=== PATIENT | male | born 1985 | race Two or more races ===

== ENCOUNTER 2016-07-01 20:33 | Emergency (ER) | payer SELFPAY ==
[2016-07-01 20:47] VITALS: BP 153/94
--- NOTE | 2016-07-01 21:04 | EDM.PDOC ---
ED HISTORY OF PRESENT ILLNESS - General Chief Complaint: Respiratory Problem Stated Complaint: COUGH/CONGESTION/SORE THROAT Time Seen by Provider: 07/01/16 21:04 Source of Information: Reports: Patient History Limitations: Reports: No limitations - History of Present Illness INITIAL COMMENTS - FREE TEXT/NARRATIVE: Patient presents for evaluation and treatment of cough and cold symptoms. Patient reports that his symptoms were present last week and a half. He is currently complaining of a productive cough, chills, shortness of breath, sore throat, bilateral ear discomfort, headaches and chest tightness. He states that he is coughing up a thick [place] green or white sputum. He reports that on occasion he has been coughing so hard that he vomits. He denies any fevers or nausea. He is unsure if he's been having any chills. Patient denies any ill contacts. Patient did not get his influenza vaccine. He is unsure about the remainder of his vaccines. Patient states he did travel to [place] last week Timing/Duration: Reports: Week(s): (1.5), Getting worse - Related Data Allergies/ADRs: Allergies Allergy/AdvReac Type Severity Reaction Status Date / Time No Known Allergies Allergy Verified 07/01/16 20:44 Home Meds: Home Meds Dextromethorphan/guaiFENesin [Robitussin DM] 5 ml PO ASDIRECTED PRN 07/01/16 [ History] Past Medical History Gastrointestinal History: Reports: GERD - Past Surgical History HEENT Surgical History: Reports: Tonsillectomy Musculoskeletal Surgical History: Reports: Arthroscopic knee Social & Family History - Tobacco Use Smoking Status *Q: Current Every Day Smoker Years of Tobacco use: 10 Packs/Tins Daily: 0.5 - Recreational Drug Use Recreational Drug Use: No ED ROS GENERAL - Review of Systems Review Of Systems: See Below Constitutional: Reports: malaise. Denies: fever HEENT: Reports: Ear pain, Throat pain Respiratory: Reports: Shortness of Breath, Cough, Sputum Cardiovascular: Reports: Chest pain (reports chest tightness) GI/Abdominal: Reports: Vomiting (post tussive emesis). Denies: Nausea Neurological: Reports: Headache ED EXAM, GENERAL - Physical Exam Exam: See Below Exam Limited By: No limitations General Appearance: alert, WD/WN, mild distress (tired and ill appearing) Ears: normal external exam, normal canal, hearing grossly normal, normal TMs ( scarring to the bilteral TMs from tube placement as a child) Nose: normal inspection Throat/Mouth: Normal inspection, Normal oropharynx, Normal voice, No airway compromise Neck: normal inspection, lymphadenopathy (L), lymphadenopathy (R) Respiratory/Chest: no respiratory distress, lungs clear, normal breath sounds Cardiovascular: normal peripheral pulses, no murmur, tachycardia Neurological: alert, oriented, normal cognition Psychiatric: normal affect, normal mood Skin Exam: Warm, Dry, Diaphoretic, Increased warmth Course - Vital Signs Last Recorded V/S: Last Vital Signs Temp 36.6 C 07/01/16 20:45 Pulse 92 07/01/16 20:45 Resp 18 07/01/16 20:45 BP 153/94 H 07/01/16 20:45 Pulse Ox 98 07/01/16 20:45 - Orders/Labs/Meds Orders: Active Orders 24 hr Category Date Time Status CULTURE STREP A CONFIRMATION [] Stat Lab 07/01/16 20:50 Results STREP SCRN A RAPID W CULT CONF [] Stat Lab 07/01/16 20:50 Results - Re-Assessments/Exams Free Text/Narrative Re-Assessment/Exam: 07/01/16 21:30 Flu and strep are negative Will treat for bronchitis with azithromycin and cough syrup. Discharge instructions as documented. Departure - Departure Time of Disposition: 21:34 Disposition: Home, Self-Care 01 Condition: fair Clinical Impression: Bronchitis Forms: ED Department Discharge Additional Instructions: prescription for azithromycin 250 mg tabs #6 Prescription for promethazine with codeine 6.25-10 per 5 mL #120 given through [facility]. Take the Zithromax as prescribed. 2 tabs on day one followed by one tab on days 2 through 5 for 5 days medication total. Take the cough syrup with codeine as prescribed. 5mls or 1 teaspoon every 4-6 hours as needed for cough. Codeine can be habit forming, I recommend you use as little as needed to control your symptoms. Do not drive or operate machinery within 12 hours of using the codeine. Rest and drink plenty of fluids. [id number] Tylenol or Motrin as needed for headaches in additional symptom relief. Followup with family medicine if you're not better within 2 weeks. Exam please return to the ER should her symptoms change or worsen. - My Orders Last 24 Hours: My Active Orders 07/01/16 20:50 CULTURE STREP A CONFIRMATION [RM] Stat STREP SCRN A RAPID W CULT CONF [] Stat - Assessment/Plan Last 24 Hours: My Active Orders 07/01/16 20:50 CULTURE STREP A CONFIRMATION [] Stat STREP SCRN A RAPID W CULT CONF [] Stat
== END 2016-07-01 21:55 | disposition home or self-care (01) ==
LOC: JD.ED 20:33
DX: J40 Bronchitis, not specified as acute or chronic (principal); K21.9 Gastro-esophageal reflux disease without esophagitis; F17.200 Nicotine dependence, unspecified, uncomplicated
CPT/HCPCS: 87081; 87430; 87804; 99283

== ENCOUNTER 2016-07-12 19:04 | Emergency (ER) | payer SELFPAY ==
[2016-07-12 19:17] VITALS: BP 129/82
--- NOTE | 2016-07-12 19:29 | EDM.PDOC ---
ED HPI Trauma - General Chief Complaint: Lower Extremity Injury/Pain Stated Complaint: LEFT KNEE INJURY Time Seen by Provider: 07/12/16 19:23 - History of Present Illness INITIAL COMMENTS - FREE TEXT/NARRATIVE: 30-year-old male presents emergency room with left knee pain. This is been going on about a week of potential triggering event that he banged his knee into the corner of the door since that time his knees bent more uncomfortable especially on the medial aspect of his knee. The patient has a sensation that his knees any give out this occurs 2-3 times a day. 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 Patient has prior history of left knee surgery back in [place] and he thinks they did some sort of meniscal repair. He has tried ibuprofen 800 mg after work one time daily. Allergies/ADRs: Allergies No Known Allergies Allergy (Verified 07/12/16 19:12) Home Medications: Ambulatory Orders Dextromethorphan/guaiFENesin [Robitussin DM] 5 ml PO ASDIRECTED PRN 07/01/16 [ Confirmed 07/01/16] Past Medical History Gastrointestinal History: Reports: GERD - Past Surgical History HEENT Surgical History: Reports: Tonsillectomy Musculoskeletal Surgical History: Reports: Arthroscopic knee Social & Family History - Tobacco Use Smoking Status *Q: Current Every Day Smoker Years of Tobacco use: 10 Packs/Tins Daily: 0.5 - Caffeine Use Caffeine Use: Reports: Coffee, Energy drinks, Soda, Tea - Recreational Drug Use Recreational Drug Use: No Review of Systems - Review of Systems Review Of Systems: See Below Constitutional: Reports: no symptoms Respiratory: Reports: No Symptoms Cardiovascular: Reports: no symptoms GI/Abdominal: Reports: No symptoms Trauma Exam - Physical Exam Exam: See Below Exam Limited By: No limitations General Appearance: Reports: alert, no apparent distress Respiratory Exam: Reports: no respiratory distress, lungs clear, normal breath sounds Cardiovascular: Reports: regular rate, rhythm, no edema, no murmur Extremities: Reports: other (Examination his left knee shows a minimal effusion mild discomfort under the patella palpation of the joint lines reveals moderate discomfort on the medial joint line. Anterior cruciate ligament appears intact MCL has small degree of laxity noted LCL appears to be intact meniscal entrapment testing is very uncomfortable loading of the medial compartment.) Course - Vital Signs Last Recorded V/S: Last Vital Signs Temp 37.1 C 07/12/16 19:12 Pulse 95 07/12/16 19:12 Resp 16 07/12/16 19:12 BP 129/82 07/12/16 19:12 Pulse Ox 100 07/12/16 19:12 - Orders/Labs/Meds Orders: Active Orders 24 hr Category Date Time Status Knee 3V Lt [CR] Stat Exams 07/12/16 19:29 Ordered Durable Medical Equipment for Discharge [DME for Oth 07/12/16 19:56 Ordered Discharge] [COMM] Stat - Re-Assessments/Exams Free Text/Narrative Re-Assessment/Exam: 07/12/16 19:36 The patient could potentially loose body in his left knee we will obtain an x- ray and probably will she was much. Anticipate placing the patient in a knee immobilizer and have him followup with orthopedics. 07/12/16 19:57 X-ray examination of the knees is unrevealing patient will be placed in a knee immobilizer anticipate discharge and followup with orthopedics this week Departure - Departure Time of Disposition: 19:57 Disposition: Home, Self-Care 01 Clinical Impression: Acute meniscal injury of left knee Referrals: PCP,None [Primary Care Provider] - Ronn Love MD [Physician] - Forms: ED Department Discharge Additional Instructions: Return to the emergency room with any questions or problems. Use your ibuprofen 800 mg 3 times a day take with meals. Use the knee immobilizer all times. Followup with Dr. Love this next week. - My Orders Last 24 Hours: My Active Orders 07/12/16 19:29 Knee 3V Lt [CR] Stat 07/12/16 19:56 Durable Medical Equipment for Discharge [DME for Discharge] [COMM] Stat - Assessment/Plan Last 24 Hours: My Active Orders 07/12/16 19:29 Knee 3V Lt [CR] Stat 07/12/16 19:56 Durable Medical Equipment for Discharge [DME for Discharge] [COMM] Stat
--- NOTE | 2016-07-13 08:11 | CR ---
Left knee: Portable AP, lateral and sunrise patellar views of the left knee was obtained. Comparison: Previous left knee study of 12/20/12. Medial and lateral joint spaces are maintained in height. No joint effusion is seen. No fracture or other bony abnormality is seen. Impression: 1. No abnormality is identified on three-view left knee exam. Diagnostic code #1
== END 2016-07-12 20:14 | disposition home or self-care (01) ==
LOC: JD.ED 19:04
DX: S83.8X2A Sprain of other specified parts of left knee, initial encounter (principal); K21.9 Gastro-esophageal reflux disease without esophagitis; F17.210 Nicotine dependence, cigarettes, uncomplicated; Z98.890 Other specified postprocedural states; X58.XXXA Exposure to other specified factors, initial encounter
CPT/HCPCS: 73562-26-LT; 73562-LT; 99283; 99284

== ENCOUNTER 2018-06-18 16:51 | Emergency (ER) | payer SELFPAY ==
[2018-06-18 17:21] VITALS: BP 132/80
--- NOTE | 2018-06-18 18:09 | EDM.PDOC ---
<Martine Fritz - Last Filed: 06/18/18 18:11> ED HPI GENERAL MEDICAL PROBLEM - General Chief Complaint: General Stated Complaint: GASPING FOR AIR DURING SLEEP Time Seen by Provider: 06/18/18 17:18 Source of Information: Reports: Patient History Limitations: Reports: No Limitations - History of Present Illness Onset Date: 06/05/18 Onset Time: 01:00 Duration: Waxing/Waning Severity: Mild Improves with: Reports: None Worsens with: Reports: None Associated Symptoms: Reports: No Other Symptoms, Other (Reports feeling exhausted in the mornings, not rested) Left Chest Pain Score (Numeric/FACES): 7 - Related Data Allergies Allergy/AdvReac Type Severity Reaction Status Date / Time No Known Allergies Allergy Verified 07/12/16 19:12 Past Medical History Gastrointestinal History: Reports: GERD - Past Surgical History HEENT Surgical History: Reports: Tonsillectomy Musculoskeletal Surgical History: Reports: Arthroscopic Knee Social & Family History - Tobacco Use Smoking Status *Q: Current Every Day Smoker Years of Tobacco use: 10 Packs/Tins Daily: 0.5 - Caffeine Use Caffeine Use: Reports: Coffee, Soda - Recreational Drug Use Recreational Drug Use: No ED ROS GENERAL - Review of Systems Review Of Systems: See Below Constitutional: Reports: No Symptoms HEENT: Reports: No Symptoms Respiratory: Reports: Other (Reports waking up in the middle of night gasping for air.) Cardiovascular: Reports: No Symptoms Endocrine: Reports: No Symptoms GI/Abdominal: Reports: No Symptoms : Reports: No Symptoms Musculoskeletal: Reports: No Symptoms Skin: Reports: No Symptoms Neurological: Reports: No Symptoms Psychiatric: Reports: No Symptoms Hematologic/Lymphatic: Reports: No Symptoms Immunologic: Reports: No Symptoms Free Text/Narrative/Comment: States he does not feel rested after sleeping. ED EXAM, GENERAL - Physical Exam Exam: See Below Exam Limited By: No Limitations General Appearance: Alert, WD/WN, No Apparent Distress Ears: Normal External Exam, Normal Canal, Hearing Grossly Normal, Normal TMs Nose: Normal Inspection, Normal Mucosa, No Blood Throat/Mouth: Normal Inspection, Normal Lips, Normal Teeth, Normal Gums, Normal Oropharynx, Normal Voice, No Airway Compromise Head: Atraumatic, Normocephalic Neck: Normal Inspection, Supple, Non-Tender, Full Range of Motion Respiratory/Chest: No Respiratory Distress, Lungs Clear, Normal Breath Sounds, No Accessory Muscle Use, Chest Non-Tender Cardiovascular: Normal Peripheral Pulses, Regular Rate, Rhythm, No Edema, No Gallop, No JVD, No Murmur, No Rub Neurological: Alert, Oriented, CN II-XII Intact, Normal Cognition, Normal Gait, Normal Reflexes, No Motor/Sensory Deficits Psychiatric: Normal Affect, Normal Mood Skin Exam: Warm, Dry, Intact, Normal Color, No Rash Lymphatic: No Adenopathy Course - Vital Signs Last Recorded V/S: Last Vital Signs Temp 37.0 C 06/18/18 17:17 Pulse 76 06/18/18 17:17 Resp 20 06/18/18 17:17 BP 132/80 06/18/18 17:17 Pulse Ox 100 06/18/18 17:17 - Re-Assessments/Exams Free Text/Narrative Re-Assessment/Exam: 06/18/18 18:08 Discussed plan of care with patient will prefer to Hospital clinic for outpatient follow-up for evaluation of sleep apnea patient verbalizes understanding and is comfortable with plan of care. Departure - Departure Time of Disposition: 18:09 Disposition: Home, Self-Care 01 Condition: Good Clinical Impression: Sleep apnea - Discharge Information *PRESCRIPTION DRUG MONITORING PROGRAM REVIEWED*: Not Applicable *COPY OF PRESCRIPTION DRUG MONITORING REPORT IN PATIENT MELIZA: Not Applicable Instructions: Sleep Apnea, [id number] Referrals: PCP,None [Primary Care Provider] - Forms: ED Department Discharge Additional Instructions: Even diagnosed with possible sleep apnea. Because you do not have a primary care doctor I suggested she follow up with the Hospital clinic at area code . Call and make an appointment for further studies for possible sleep apnea study. Return to the emergency room for any new or acutely worsening symptoms. <Harjit Mujica - Last Filed: 06/18/18 19:18> Course - Re-Assessments/Exams Free Text/Narrative Re-Assessment/Exam: 06/18/18 19:17 I personally participated in the care of this patient was involved with medical decision making and have reviewed the physical exam and history.
== END 2018-06-18 18:46 | disposition home or self-care (01) ==
LOC: JD.ED 16:51
DX: G47.30 Sleep apnea, unspecified (principal); F17.210 Nicotine dependence, cigarettes, uncomplicated
CPT/HCPCS: 99282; 99283

== ENCOUNTER 2022-08-06 19:31 | Emergency (ER) | payer SELFPAY ==
[2022-08-06] MEDS ORDERED: Alum Hydrox/Mag Hydrox/Simeth 30 ML, Lidocaine 2% 15 ML PO STA ×2 (20:07)
[2022-08-06] MEDS ORDERED: Sucralfate Suspension 1 GM/10 ML Cup PO ONE (20:07)
[2022-08-06] MEDS ORDERED: Orphenadrine 100 MG Tab.ER PO STA (20:08)
[2022-08-06] MEDS ORDERED: Famotidine 20 MG/2 ML SDV IVPUSH STA (20:08)
[2022-08-06] MEDS ORDERED: Sodium Chloride 0.9% 1,000 ML IV SCH (20:15)
[2022-08-06] MEDS ORDERED: Iopamidol 612 MG/ML 100 ML Bottle IVPUSH ONE (20:43)
[2022-08-06 23:06] VITALS: BP 104/61; PULSE 57
== END 2022-08-06 23:07 | disposition home or self-care (01) ==
LOC: JD.ED 19:31
DX: R10.13 Epigastric pain (principal); M54.50 Low back pain, unspecified; K21.9 Gastro-esophageal reflux disease without esophagitis; Z72.0 Tobacco use
CPT/HCPCS: 36415; 74177; 80053; 81001; 83690; 85007; 85027; 96361; 96374; 99284; A9270; J3490; J7030; Q9967; 99283

== ENCOUNTER 2022-09-01 08:28 | Day surgery (SDC) | payer SELFPAY ==
[~2022-09-01 08:28] MED LIST: Lactated Ringers 1,000 ML IV SCH; Lidocaine 1% 5 ML VIAL ONE; Lidocaine 1%/Sod Bicarbonate in NS 8.4% 1 ML Syringe IDERM PRN; Midazolam 1 MG/ML 2 ML SDV ONE; Ondansetron 4 MG/2 ML SDV ONE; Propofol 200 MG/20 ML SDV ONE; Rocuronium 50 MG/5 ML Vial ONE; Sodium Chloride 0.9% 10 ML Syringe FLUSH PRN; Sodium Chloride 0.9% 10 ML Syringe FLUSH SCH; fentaNYL 250 MCG/5 ML SDV ONE
[2022-09-01] MEDS ORDERED: Lidocaine 1% 30 ML SDV ONE (08:29)
[2022-09-01] MEDS ORDERED: Bupivacaine 0.5%/EPINEPHrine 1:200,000 50 ML MDV ONE (08:29)
[2022-09-01] MEDS ORDERED: Dexamethasone 4 MG/ML 5 ML MDV ONE (08:57)
[2022-09-01] MEDS ORDERED: ceFAZolin 2 GM Vial ONE (09:24)
[2022-09-01] MEDS ORDERED: Ketamine 500 mg/10 ML MDV ONE (10:27)
[2022-09-01] MEDS ORDERED: Ondansetron 4 MG/2 ML SDV IVPUSH PRN (10:29)
[2022-09-01] MEDS ORDERED: HYDROmorphone 0.5 MG/0.5 ML Syringe IVPUSH PRN (10:29)
[2022-09-01] MEDS ORDERED: fentaNYL 100 MCG/2 ML SDV IVPUSH PRN (10:29)
[2022-09-01] MEDS ORDERED: Lactated Ringers 1,000 ML ONE (10:48)
[2022-09-01] MEDS ORDERED: Neostigmine Methylsulfate 10 MG/10 ML MDV ONE (10:56)
[2022-09-01] MEDS ORDERED: Ketorolac 15 MG/ML SDV ONE (10:56)
[2022-09-01] MEDS ORDERED: Midazolam 1 MG/ML 2 ML SDV ONE (11:30)
[2022-09-01 13:00] VITALS: PULSE 78
[2022-09-01] MEDS ORDERED: oxyCODONE 5 MG Tab PO ONE (13:00)
[2022-09-01 13:58] VITALS: BP 116/68
[2022-09-01] MEDS ORDERED: Ibuprofen 600 MG Tab PO ONE (14:00)
== END 2022-09-01 13:50 | disposition home or self-care (01) ==
LOC: JD.SDS 08:28
PROVIDERS: ATTEND Surgery
DX: K80.10 Calculus of gallbladder with chronic cholecystitis without obstruction (principal); K21.9 Gastro-esophageal reflux disease without esophagitis; G47.30 Sleep apnea, unspecified; F17.210 Nicotine dependence, cigarettes, uncomplicated; Z79.899 Other long term (current) drug therapy
CPT/HCPCS: 47562; A9270; J0690; J1100; J1885; J2250; J2405; J2704; J2710; J3010; J3490; J7120; 00790

== ENCOUNTER 2023-12-09 17:34 | Emergency (ER) | payer SELFPAY | END 2023-12-09 18:45 | disposition left against medical advice (07) | LOC: JD.ED 17:34 | DX: Z53.21 Procedure and treatment not carried out due to patient leaving prior to being seen by health care provider (principal) ==

== ENCOUNTER 2024-04-30 15:23 | Emergency (ER) | payer BC ==
[2024-04-30 16:08] LABS: APPEARANCE,URINE CLEAR (Clear); BILIRUBIN,URINE NEGATIVE (Negative); COLOR,URINE YELLOW (Yellow); GLUCOSE,URINE NEGATIVE (Negative); KETONES,URINE NEGATIVE (Negative); LEUKOCYTE ESTERASE,URINE NEGATIVE (Negative); NITRITE,URINE NEGATIVE (Negative); OCCULT BLOOD,URINE TRACE-LYSED (Negative); PROTEIN,URINE NEGATIVE (Negative); UROBILINOGEN,URINE 0.2 (0.2-1.0)
[2024-04-30 16:29] LABS: BACTERIA,URINE OCCASIONAL /hpf (FEW); MUCUS,URINE FEW /hpf (FEW); RBC,URINE 0-5 /hpf (0-5); SQUAMOUS EPITHELIAL CELLS,UR 0-5 /hpf (0-5); WBC,URINE 0-5 /hpf (0-5)
[2024-04-30 16:49] LABS: BASOPHILS PERCENT AUTO 0.4 % (0.0-1.0); EOSINOPHILS ABSOLUTE AUTO 0.2 K/mm3 (0.0-0.4); EOSINOPHILS PERCENT AUTO 3.1 % (0.0-6.0); HEMATOCRIT 45.1 % (42.0-52.0); HEMOGLOBIN 15.7 gm/dl (14.0-18.0); IMMATURE GRAN ABSOLUTE AUTO 0.02 K/mm3 (0.00-0.05); IMMATURE GRAN PERCENT AUTO 0.3 % (0.0-0.4); LYMPHOCYTES ABSOLUTE AUTO 2.9 K/mm3 (1.0-4.8); LYMPHOCYTES PERCENT AUTO 37.5 % (24.0-44.0); MEAN CORPUSCULAR HEMOGLOBIN 29.9 pg (28.0-32.0); MEAN CORPUSCULAR HGB CONC 34.8 g/dl (32.0-36.0); MEAN CORPUSCULAR VOLUME 85.9 fl (83.0-99.0); MEAN PLATELET VOLUME 9.1 fl (9.4-12.4); MONOCYTES ABSOLUTE AUTO 0.5 K/mm3 (0.0-0.8); MONOCYTES PERCENT AUTO 6.4 % (0.0-8.0); NEUTROPHILS ABSOLUTE AUTO 4.1 K/mm3 (1.8-7.7); NEUTROPHILS PERCENT AUTO 52.3 % (41.0-71.0); PLATELET COUNT,PLT 231 K/mm3 (150-400); RED BLOOD CELL COUNT 5.25 M/mm3 (4.52-5.90); WHITE BLOOD CELL COUNT,WBC 7.76 K/mm3 (3.9-11.3)
[2024-04-30 17:14] LABS: A/G RATIO 1.1 (1-2); ANION GAP 11.7 (5-15); BILIRUBIN TOTAL 0.4 mg/dL (0.2-1.0); CALCIUM 8.9 mg/dL (8.5-10.1); EST CRCL DRUG DOSING (CG) 102.12 mL/min; POTASSIUM,K 3.7 mEq/L (3.5-5.1); PROTEIN TOTAL,TP 7.6 g/dl (6.4-8.2)
[2024-04-30 17:16] LABS: LACTIC ACID 0.8 mmol/L (0.4-2.0)
[2024-04-30] MEDS: Acetaminophen/HYDROcodone 325-5 MG Tab PO ONE (17:58)
[2024-04-30] MEDS: Tamsulosin 0.4 MG Cap.ER PO ONE (17:58)
[2024-04-30 18:00] VITALS: BP 131/80; PULSE 71
== END 2024-04-30 18:18 | disposition home or self-care (01) ==
LOC: JD.ED 15:23
DX: N13.2 Hydronephrosis with renal and ureteral calculous obstruction (principal); K21.9 Gastro-esophageal reflux disease without esophagitis; Z79.899 Other long term (current) drug therapy
CPT/HCPCS: 36415; 74150; 80053; 81001; 83605; 85025; 99284; A9270